=== PATIENT | female | born 1960 | race Hispanic/Latino ===

== ENCOUNTER 2025-06-10 17:46 | Emergency (ER) | payer OTHER ==
[~2025-06-10] VITALS: Ht 160 cm; Wt 71.6 kg
[2025-06-10 19:46] LABS: BASOPHILS 0.2 % (0.1-1.2); EOSINOPHILS 0.2 % (0.7-5.8); LYMPHOCYTES 16.1 % (19.3-51.7); MCH 28.9 PG (25.6-32.2); MCHC 33.2 g/dL (32.2-35.5); MCV 86.9 fL (79.4-94.8); MONOCYTES 4.9 % (4.7-12.5); NEUTROPHILS 78.3 % (34.0-71.1); RBC 4.36 M/uL (3.93-5.22)
[2025-06-10] MEDS ORDERED: SODIUM CHLORIDE 0.9% 1,000 ML IV PRN (20:00)
[2025-06-10] MEDS ORDERED: ACETAMINOPHEN 325 MG TAB PO ONE (20:00)
[2025-06-10] MEDS ORDERED: FAMOTIDINE 20 MG/ 2 ML VIAL IV ONE (20:00)
[2025-06-10 20:02] LABS: ALT (SGPT) 38.0 U/L (14-59); AST (SGOT) 33.0 U/L (15-37); GLOMERULAR FILTRATION RATE,EST 74.0 mL/min (>60); PROTEIN, TOTAL 7.9 g/dL (6.4-8.2); UREA NITROGEN 10.0 mg/dL (7-18)
[2025-06-10 20:05] LABS: LACTIC ACID, BLOOD 1.0 mmol/L (0.4-2.0)
[2025-06-10 20:45] LABS: CORONAVIRUS COVID-19 AG NEGATIVE (NEGATIVE)
[2025-06-10 21:05] LABS: BLOOD/HGB, URINE TRACE-I (Negative); KETONE, URINE TRACE (Negative); LEUK ESTERASE, URINE MODERATE (negative); NITRITE, URINE NEGATIVE (negative)
[2025-06-10 21:13] LABS: EPITHELIAL CELLS, URINE SQUAMOUS 1+ /lpf (0-1+)
[2025-06-10 21:14] LABS: BACTERIA, URINE 4+ /hpf (negative); CASTS, URINE NONE SEEN \\lpf; CRYSTALS, URINE NONE SEEN (0-1+); REFLEX CULTURE, URINE Yes (No)
[2025-06-10] MEDS ORDERED: LEVOFLOXACIN750 MG PO ×2 (22:05→22:36)
[2025-06-10 22:35] VITALS: BP 109/70
== END 2025-06-10 22:35 | disposition home or self-care (01) ==
LOC: ED 17:46
PROVIDERS: Internal Medicine
DX: J18.9 Pneumonia, unspecified organism (principal); N39.0 Urinary tract infection, site not specified
CPT/HCPCS: 36415; 71045; 80053; 81001; 83605; 83880; 84484; 85025; 87040; 87077; 87088; 87186; 96365; 96375; 99285-25; A9270; J0696; J2405; J7030